=== PATIENT | female | born 1970 | race American Indian/Alaskan Native ===

== ENCOUNTER 2021-02-09 17:24 | Emergency (ER) | payer OTHER, MEDICARE ==
[2021-02-09] MEDS ORDERED: MORPHINE 4 MG/1 ML INJ IV ONE (18:09)
--- NOTE | 2021-02-09 18:12 | Emergency Department Report ---
HPI <ROLANDO CHOW - Last Filed: 02/10/21 01:25> - HPI HPI: This is a 50-year-old -[place] female who presents to the emergency department with a complaint of seeing both blood and pus in her most recent diaper. The patient wears a diaper secondary to a history of urinary incontinence. She has a past medical history of HIV and also has a history of colon cancer. She has a previous history of some colon resection and ostomy placement. Patient says that she went to [facility] earlier today for nausea, vomiting and generalized weakness and was discharged. She denies any abdominal pain but does complain of rectal bleed. She denies any fever, constipation or diarrhea, vaginal discharge, dysuria. She has not taken anything for symptoms prior to presentation today. <GAMAL SIM - Last Filed: 02/11/21 07:20> - General Chief Complaint: Vaginal Bleeding Time Seen by Provider: 02/09/21 18:04 ED Past Medical Hx <ROLADNO CHOW - Last Filed: 02/10/21 01:25> - Past Medical History Previous Medical History?: Yes Hx Hypertension: Yes Hx of Cancer: Yes (Rectal) Hx HIV: Yes - Surgical History Past Surgical History?: Yes Additional Surgical History: tubal litigation - Social History Smoking Status: Never Smoker <GAMAL SIM - Last Filed: 02/11/21 07:20> - Medications Home Medications: Home Medications Medication Instructions Recorded Confirmed Last Taken Type Ciprofloxacin HCl 500 mg PO BID 10 Days #20 tablet 02/10/21 Unknown Rx HYDROcodone/APAP 5-325 [[place] 1 each PO Q6HR PRN #14 tablet 02/10/21 Unknown Rx 5/325] Ondansetron [Zofran Odt] 4 mg PO Q8HR PRN #14 tab.rapdis 02/10/21 Unknown Rx ED Review of Systems ROS: Stated complaint: VAGINAL BLEEDING Other details as noted in HPI <ROLANDO CHOW - Last Filed: 02/10/21 01:25> ROS: Stated complaint: VAGINAL BLEEDING Other details as noted in HPI Comment: All other systems reviewed and negative Constitutional: denies: chills, fever Eyes: denies: eye pain, vision change ENT: denies: ear pain, throat pain Respiratory: denies: cough, shortness of breath Cardiovascular: denies: chest pain, palpitations Gastrointestinal: denies: abdominal pain, vomiting Genitourinary: other (Rectal pain, concern for rectal bleeding or infection versus vaginal bleeding or infection) Musculoskeletal: denies: joint swelling, arthralgia Skin: denies: rash, lesions Neurological: denies: headache, weakness <GAMAL SIM - Last Filed: 02/11/21 07:20> Physical Exam - Physical Exam Vital Signs: Vital Signs 02/09/21 02/09/21 02/09/21 17:51 19:36 19:38 Temperature 98 F 98.3 F Pulse Rate 84 91 H Respiratory 13 16 16 Rate Blood Pressure 148/93 Blood Pressure 143/91 [Right] O2 Sat by Pulse 100 100 Oximetry 02/09/21 02/09/21 02/10/21 20:06 23:11 01:07 Temperature 98.2 F Pulse Rate 88 Respiratory 16 19 16 Rate Blood Pressure Blood Pressure 123/73 [Right] O2 Sat by Pulse 100 Oximetry <ROLANDO CHOW - Last Filed: 02/10/21 01:25> - Physical Exam Vital Signs: Vital Signs 02/09/21 17:51 Temperature 98 F Pulse Rate 84 Respiratory 13 Rate Blood Pressure 148/93 O2 Sat by Pulse 100 Oximetry Physical Exam: GENERAL: The patient is thin/cachectic. HENT: Normocephalic. Atraumatic. Patient has moist mucous membranes. EYES: Extraocular motions are intact. NECK: Supple. Trachea is midline. CHEST/LUNGS: Clear to auscultation. There is no respiratory distress noted. HEART/CARDIOVASCULAR: Regular. There is no tachycardia. There is no murmur. ABDOMEN: Abdomen is soft, nontender. Patient has normal bowel sounds. There is no abdominal distention. SKIN: Skin is warm and dry. There is a rectal wound seen from previous colon resection. No current bleeding or purulent discharge seen. No surrounding erythema. : No vaginal bleeding or discharge seen. NEURO: The patient is awake, alert, and oriented. The patient is cooperative. The patient has no focal neurologic deficits. Normal speech. MUSCULOSKELETAL: There is no tenderness or deformity. There is no limitation range of motion. <GAMAL SIM - Last Filed: 02/11/21 07:20> ED Course Vital Signs 02/09/21 02/09/21 02/09/21 17:51 19:36 19:38 Temperature 98 F 98.3 F Pulse Rate 84 91 H Respiratory 13 16 16 Rate Blood Pressure 148/93 Blood Pressure 143/91 [Right] O2 Sat by Pulse 100 100 Oximetry 02/09/21 02/09/21 02/10/21 20:06 23:11 01:07 Temperature 98.2 F Pulse Rate 88 Respiratory 16 19 16 Rate Blood Pressure Blood Pressure 123/73 [Right] O2 Sat by Pulse 100 Oximetry <ROLANDO CHOW - Last Filed: 02/10/21 01:25> Vital Signs 02/09/21 17:51 Temperature 98 F Pulse Rate 84 Respiratory 13 Rate Blood Pressure 148/93 O2 Sat by Pulse 100 Oximetry - Reevaluation(s) Reevaluation #1: 02/09/21 19:29 Rectal and vaginal examination done with lead maintenance technician Shyla at bedside to healthcare interpreter and assist. <GAMAL SIM - Last Filed: 02/11/21 07:20> - EJ/Peripheral Line Arm L Time Out Performed: Yes Indications: nurses unable to establis Skin Cleansed in Sterile Fashion: Yes Size: 22 Dressing Placed: Tegaderm, tape Patient Tolerated Procedure: well <GAMAL SIM - Last Filed: 02/11/21 07:20> ED Medical Decision Making - Lab Data Result diagrams: 02/09/21 20:46 02/09/21 20:46 - Radiology Data Radiology results: report reviewed - Medical Decision Making Patient is a 50-year-old -[place] female signed out to me by my colleague Dr. Sim. Patient presents to the emergency department with a complaint of seeing both blood and pus in her most recent diaper. The patient wears a diaper secondary to a history of urinary incontinence. She has a past medical history of HIV and also has a history of colon cancer. She has a previous history of some colon resection and ostomy placement. Patient says that she went to [facility] earlier today for nausea, vomiting and generalized weakness and was discharged. She denies any abdominal pain but does complain of rectal bleed. She denies any fever, constipation or diarrhea, vaginal discharge, dysuria. She has not taken anything for symptoms prior to presentation today. Labs reviewed and showed white blood cells of 13,000. Urine is positive for UTI with both positive nitrite and leuk esterase and WBC more than 180. Patient received Rocephin [address] abdomen and pelvis showed large area of ulceration however there is no clinical evidence of abscess. Patient given prescription for ciprofloxacin and advised to follow-up with gynecology in the next 2 to 3 d ays and to return to the ER if she develop any new symptoms. <ROLANDO CHOW Patience. - Last Filed: 02/10/21 01:25> - Lab Data Result diagrams: 02/09/21 20:46 02/09/21 20:46 Lab Results 02/09/21 02/09/21 02/09/21 Range/Units 20:46 20:46 20:46 WBC 13.7 H (4.5-11.0) K/mm3 RBC 3.24 L (3.65-5.03) M/mm3 Hgb 8.7 L (10.1-14.3) gm/dl Hct 26.7 L (30.3-42.9) % MCV 82 (79-97) fl MCH 27 L (28-32) pg MCHC 33 (30-34) % RDW 17.1 H (13.2-15.2) % Plt Count 605 H (140-440) K/mm3 Add Manual Diff Complete Total Counted 100 Seg Neuts % (Manual) 79.0 H (40.0-70.0) % Lymphocytes % (Manual) 11.0 L (13.4-35.0) % Monocytes % (Manual) 10.0 H (0.0-7.3) % Nucleated RBC % Not Reportable Seg Neutrophils # Man 10.8 H (1.8-7.7) K/mm3 Band Neutrophils # 0.0 K/mm3 Lymphocytes # (Manual) 1.5 (1.2-5.4) K/mm3 Abs React Lymphs (Man) 0.0 K/mm3 Monocytes # (Manual) 1.4 H (0.0-0.8) K/mm3 Eosinophils # (Manual) 0.0 (0.0-0.4) K/mm3 Basophils # (Manual) 0.0 (0.0-0.1) K/mm3 Metamyelocytes # 0.0 K/mm3 Myelocytes # 0.0 K/mm3 Promyelocytes # 0.0 K/mm3 Blast Cells # 0.0 K/mm3 WBC Morphology Not Reportable Hypersegmented Neuts Not Reportable Hyposegmented Neuts Not Reportable Hypogranular Neuts Not Reportable Smudge Cells Not Reportable Toxic Granulation Not Reportable Toxic Vacuolation Not Reportable Dohle Bodies Not Reportable Pelger-Huet Anomaly Not Reportable Benoit Rods Not Reportable Platelet Estimate Not Reportable Clumped Platelets Not Reportable Plt Clumps, EDTA Not Reportable Large Platelets Not Reportable Giant Platelets Not Reportable Platelet Satelliting Not Reportable Plt Morphology Comment Not Reportable RBC Morphology Normal Dimorphic RBCs Not Reportable Polychromasia Not Reportable Hypochromasia Not Reportable Poikilocytosis Not Reportable Anisocytosis Not Reportable Microcytosis Not Reportable Macrocytosis Not Reportable Spherocytes Not Reportable Pappenheimer Bodies Not Reportable Sickle Cells Not Reportable Target Cells Not Reportable Tear Drop Cells Not Reportable Ovalocytes Not Reportable Helmet Cells Not Reportable Snowden-Leming Bodies Not Reportable [place] Rings Not Reportable Leeanne Cells Not Reportable Bite Cells Not Reportable Crenated Cell Not Reportable Elliptocytes Not Reportable Acanthocytes (Spur) Not Reportable Rouleaux Not Reportable Hemoglobin C Crystals Not Reportable Schistocytes Not Reportable Malaria parasites Not Reportable Michel Bodies Not Reportable Hem Pathologist Commnt No PT 14.8 (12.2-14.9) Sec. INR 1.18 H (0.87-1.13) APTT 25.9 (24.2-36.6) Sec. Sodium 132 L (137-145) mmol/L Potassium 4.3 (3.6-5.0) mmol/L Chloride 95.9 L (98-107) mmol/L Carbon Dioxide 21 L (22-30) mmol/L Anion Gap 19 mmol/L BUN 24 H (7-17) mg/dL Creatinine 0.6 (0.6-1.2) mg/dL Estimated GFR > 60 ml/min BUN/Creatinine Ratio 40 % Glucose 85 (65-100) mg/dL Calcium 11.0 H (8.4-10.2) mg/dL Total Bilirubin 0.20 (0.1-1.2) mg/dL Direct Bilirubin < 0.2 (0-0.2) mg/dL Indirect Bilirubin 0.0 mg/dL AST 24 (5-40) units/L ALT 22 (7-56) units/L Alkaline Phosphatase 251 H (35-129) units/L Total Protein 7.8 (6.3-8.2) g/dL Albumin 2.7 L (3.9-5) g/dL Albumin/Globulin Ratio 0.5 % Urine Color (Yellow) Urine Turbidity (Clear) Urine pH (5.0-7.0) Ur Specific [place] (1.003-1.030) Urine Protein (Negative) mg/dL Urine Glucose (UA) (Negative) mg/dL Urine Ketones (Negative) mg/dL Urine Blood (Negative) Urine Nitrite (Negative) Urine Bilirubin (Negative) Urine Urobilinogen (<2.0) mg/dL Ur Leukocyte Esterase (Negative) Urine WBC (Auto) (0.0-6.0) /HPF Urine RBC (Auto) (0.0-6.0) /HPF U Epithel Cells (Auto) (0-13.0) /HPF Urine Bacteria (Auto) (Negative) /HPF 02/09/21 Range/Units Unknown WBC (4.5-11.0) K/mm3 RBC (3.65-5.03) M/mm3 Hgb (10.1-14.3) gm/dl Hct (30.3-42.9) % MCV (79-97) fl MCH (28-32) pg MCHC (30-34) % RDW (13.2-15.2) % Plt Count (140-440) K/mm3 Add Manual Diff Total Counted Seg Neuts % (Manual) (40.0-70.0) % Lymphocytes % (Manual) (13.4-35.0) % Monocytes % (Manual) (0.0-7.3) % Nucleated RBC % Seg Neutrophils # Man (1.8-7.7) K/mm3 Band Neutrophils # K/mm3 Lymphocytes # (Manual) (1.2-5.4) K/mm3 Abs React Lymphs (Man) K/mm3 Monocytes # (Manual) (0.0-0.8) K/mm3 Eosinophils # (Manual) (0.0-0.4) K/mm3 Basophils # (Manual) (0.0-0.1) K/mm3 Metamyelocytes # K/mm3 Myelocytes # K/mm3 Promyelocytes # K/mm3 Blast Cells # K/mm3 WBC Morphology Hypersegmented Neuts Hyposegmented Neuts Hypogranular Neuts Smudge Cells Toxic Granulation Toxic Vacuolation Dohle Bodies Pelger-Huet Anomaly Benoit Rods Platelet Estimate Clumped Platelets Plt Clumps, EDTA Large Platelets Giant Platelets Platelet Satelliting Plt Morphology Comment RBC Morphology Dimorphic RBCs Polychromasia Hypochromasia Poikilocytosis Anisocytosis Microcytosis Macrocytosis Spherocytes Pappenheimer Bodies Sickle Cells Target Cells Tear Drop Cells Ovalocytes Helmet Cells Snowden-Leming Bodies [place] Rings Rhodelia Cells Bite Cells Crenated Cell Elliptocytes Acanthocytes (Spur) Rouleaux Hemoglobin C Crystals Schistocytes Malaria parasites Michel Bodies Hem Pathologist Commnt PT (12.2-14.9) Sec. INR (0.87-1.13) APTT (24.2-36.6) Sec. Sodium (137-145) mmol/L Potassium (3.6-5.0) mmol/L Chloride (98-107) mmol/L Carbon Dioxide (22-30) mmol/L Anion Gap mmol/L BUN (7-17) mg/dL Creatinine (0.6-1.2) mg/dL Estimated GFR ml/min BUN/Creatinine Ratio % Glucose (65-100) mg/dL Calcium (8.4-10.2) mg/dL Total Bilirubin (0.1-1.2) mg/dL Direct Bilirubin (0-0.2) mg/dL Indirect Bilirubin mg/dL AST (5-40) units/L ALT (7-56) units/L Alkaline Phosphatase (35-129) units/L Total Protein (6.3-8.2) g/dL Albumin (3.9-5) g/dL Albumin/Globulin Ratio % Urine Color Malika (Yellow) Urine Turbidity Cloudy (Clear) Urine pH 7.0 (5.0-7.0) Ur Specific [place] 1.017 (1.003-1.030) Urine Protein 100 mg/dl (Negative) mg/dL Urine Glucose (UA) Neg (Negative) mg/dL Urine Ketones Neg (Negative) mg/dL Urine Blood Lg (Negative) Urine Nitrite Pos (Negative) Urine Bilirubin Neg (Negative) Urine Urobilinogen < 2.0 (<2.0) mg/dL Ur Leukocyte Esterase Lg (Negative) Urine WBC (Auto) > 182.0 H (0.0-6.0) /HPF Urine RBC (Auto) > 182.0 (0.0-6.0) /HPF U Epithel Cells (Auto) 2.0 (0-13.0) /HPF Urine Bacteria (Auto) 2+ (Negative) /HPF - Radiology Data Radiology results: report reviewed CT ABDOMEN AND PELVIS WITHOUT CONTRAST INDICATION / CLINICAL INFORMATION: Rectal pain, complaint of bleeding and discharge. TECHNIQUE: Axial CT images were obtained through the abdomen and pelvis without IV contrast. All CT scans at this location are performed using CT dose reduction for ALARA by means of automa aakash exposure control. COMPARISON: None available. FINDINGS: LOWER CHEST: No significant abnormality. LIVER: No significant abnormality. GALLBLADDER: No significant abnormality. BILE DUCTS: No significant abnormality. PANCREAS: No significant abnormality. SPLEEN: No significant abnormality. ADRENALS: No significant abnormality. RIGHT KIDNEY / URETER: Small nonobstructing stones. LEFT KIDNEY / URETER: Small nonobstructing stones. STOMACH / SMALL BOWEL: No significant abnormality. COLON: Left lower quadrant ostomy. APPENDIX: Nonvisualized. PERITONEUM: No free fluid. No free air. No fluid collection. LYMPH NODES: No significant adenopathy. VASCULAR STRUCTURES: No significant abnormality. URINARY BLADDER: No significant abnormality. REPRODUCTIVE ORGANS: No significant abnormality. ADDITIONAL FINDINGS: Large ulceration at the level of the rectum extending into the left ischiorectal fossa and undersurface of the vagina. Mild internal fluid. SKELETAL SYSTEM: No bony destruction. IMPRESSION: 1. Large soft tissue tissue ulceration with involvement of the undersurface of the vagina. Mild internal fluid.. 2. Negative for bony destruction. - Medical Decision Making This patient presents with the complaint of either rectal or vaginal bleeding and purulent discharge. No obvious bleeding or discharge seen on physical examination. The patient is thin appearing. Thus far vital signs have been reassuring including being afebrile. I placed a left upper extremity peripheral IV with ultrasound guidance. I am still waiting for labs to be drawn and resulted. Given her history and complaints, I have ordered a CT scan of the abdomen and pelvis. This patient will be signed out to my colleague, Dr Chow to follow the results and help with disposition. <GAMAL SIM - Last Filed: 02/11/21 07:20> Critical care attestation.: If time is entered above; I have spent that time in minutes in the direct care of this critically ill patient, excluding procedure time. <ROLANDO CHOW - Last Filed: 02/10/21 01:25> Critical Care Time: No Critical care attestation.: If time is entered above; I have spent that time in minutes in the direct care of this critically ill patient, excluding procedure time. <GMAAL SIM - Last Filed: 02/11/21 07:20> ED Disposition Is pt being admited?: No <ROLANDO CHOW - Last Filed: 02/10/21 01:25> Is pt being admited?: No <GAMAL SIM - Last Filed: 02/11/21 07:20> Clinical Impression: Vaginal ulceration UTI (urinary tract infection) Qualifiers: Urinary tract infection type: acute cystitis Hematuria presence: with hematuria Qualified Code(s): N30.01 - Acute cystitis with hematuria Disposition: TO HOME OR SELFCARE Condition: Stable Instructions: Urinary Tract Infection, Adult, [id number] Prescriptions: Ciprofloxacin HCl 500 mg PO BID 10 Days #20 tablet HYDROcodone/APAP 5-325 [[place] 5/325] 1 each PO Q6HR PRN #14 tablet PRN Reason: Pain Ondansetron [Zofran Odt] 4 mg PO Q8HR PRN #14 tab.rapdis PRN Reason: Nausea And Vomiting Referrals: KAIA BESS MD [Primary Care Provider] - 3-5 Days PATRICIA HIDALGO MD [Staff Physician] - 3-5 Days
[2021-02-09 21:04] LABS: Hematocrit 26.7 % (30.3-42.9); Hemoglobin 8.7 gm/dl (10.1-14.3); Mean Corpuscular HGB Conc 33 % (30-34); Mean Corpuscular Volume 82 fl (79-97); Platelet Count 605 K/mm3 (140-440); Red Blood Count 3.24 M/mm3 (3.65-5.03); Red Cell Distribution Width 17.1 % (13.2-15.2)
[2021-02-09 21:13] LABS: INR 1.18 (0.87-1.13)
[2021-02-09 21:14] LABS: Partial Thromboplastin Time 25.9 Sec. (24.2-36.6)
[2021-02-09 21:22] LABS: Alanine Aminotransferase 22 units/L (7-56); Albumin 2.7 g/dL (3.9-5); Blood Urea Nitrogen 24 mg/dL (7-17); Hemolysis Index 42
[2021-02-09 21:24] LABS: BUN/Creatinine Ratio 40; Bilirubin,Direct < 0.2 mg/dL (0-0.2)
[2021-02-09 21:56] LABS: RBC Morphology Normal; Total Cells Counted 100
[2021-02-09 22:47] LABS: Bacteria,Urine 2+ /HPF (Negative); Bilirubin,Urine NEG (Negative); Blood,Urine LG (Negative); Color,Urine Amber (Yellow); Urobilinogen,Urine < 2.0 mg/dL (<2.0)
[2021-02-09 22:48] LABS: RBC,Urine > 182.0 /HPF (0.0-6.0); WBC,Urine > 182.0 /HPF (0.0-6.0)
[2021-02-09] MEDS ORDERED: cefTRIAXone/NS 1 GM/50 ML 1 GM/50 ML BAG IV ONE (22:55)
[2021-02-10] MEDS ORDERED: MORPHINE 2 MG/1 ML INJ ONE (01:01)
[2021-02-10] MEDS ORDERED: MORPHINE 4 MG/1 ML INJ IV ONE (01:04)
--- NOTE | 2021-02-10 01:20 | Cat Scan Report ---
CT ABDOMEN AND PELVIS WITHOUT CONTRAST INDICATION / CLINICAL INFORMATION: Rectal pain, complaint of bleeding and discharge. TECHNIQUE: Axial CT images were obtained through the abdomen and pelvis without IV contrast. All CT scans at this location are performed using CT dose reduction for ALARA by means of automated exposure control. COMPARISON: None available. FINDINGS: LOWER CHEST: No significant abnormality. LIVER: No significant abnormality. GALLBLADDER: No significant abnormality. BILE DUCTS: No significant abnormality. PANCREAS: No significant abnormality. SPLEEN: No significant abnormality. ADRENALS: No significant abnormality. RIGHT KIDNEY / URETER: Small nonobstructing stones. LEFT KIDNEY / URETER: Small nonobstructing stones. STOMACH / SMALL BOWEL: No significant abnormality. COLON: Left lower quadrant ostomy. APPENDIX: Nonvisualized. PERITONEUM: No free fluid. No free air. No fluid collection. LYMPH NODES: No significant adenopathy. VASCULAR STRUCTURES: No significant abnormality. URINARY BLADDER: No significant abnormality. REPRODUCTIVE ORGANS: No significant abnormality. ADDITIONAL FINDINGS: Large ulceration at the level of the rectum extending into the left ischiorectal fossa and undersurface of the vagina. Mild internal fluid. SKELETAL SYSTEM: No bony destruction. IMPRESSION: 1. Large soft tissue tissue ulceration with involvement of the undersurface of the vagina. Mild inter nal fluid.. 2. Negative for bony destruction. Signer Name: Pablo Salcedo MD Signed: 02/10/2021 1:16 AM Workstation Name: [id number]
[2021-02-10 03:05] VITALS: BP 132/93
== END 2021-02-10 03:07 | disposition home or self-care (01) ==
LOC: ED 17:24
DX: N39.0 Urinary tract infection, site not specified (principal); N76.5 Ulceration of vagina; R10.2 Pelvic and perineal pain; I10 Essential (primary) hypertension; Z21 Asymptomatic human immunodeficiency virus [HIV] infection status; Z98.51 Tubal ligation status; Z79.2 Long term (current) use of antibiotics; Z79.899 Other long term (current) drug therapy
CPT/HCPCS: 36415; 36569; 74176; 80048; 80076; 81001; 85007; 85025; 85610; 85730; 96365; 96375; 96376; 99284; J0696; J2270